=== PATIENT | female | born 1950 | race Caucasian/White ===

== ENCOUNTER 2016-09-02 10:18 | Outpatient (CLI) | payer OTHER ==
--- NOTE | 2016-09-03 13:01 | DIAGNOSTIC IMAGING REPORT ---
REFERRING PHYSICIAN/PROVIDER: Stew Bernal MD CONSULTING LOCKSTITCH FRONT MAKER: Micha Walker MD PROCEDURE: 2D echo, M-mode and complete color and flow Doppler interrogation TECHNICAL QUALITY: Good INDICATION: MURMER INTERPRETATIONS: CHAMBERS: LEFT ATRIUM: Normal left atrial size. LEFT VENTRICLE: Asymmetric septal hypertrophy with a maximum thickness of 1.3 cm. Normal left ventricular size and systolic function, EF 59%. No wall motion abnormalities. Normal diastolic function. No left ventricular outflow tract obstruction appreciated. RIGHT ATRIUM: Normal right atrial size. RIGHT VENTRICLE: Normal right ventricular size and systolic function. VALVES: All valves nonrheumatic unless otherwise indicated. AORTIC VALVE: Trileaflet aortic valve. No aortic stenosis. No aortic regurgitation. MITRAL VALVE: Trace mitral regurgitation. No mitral stenosis. TRICUSPID VALVE: Mild tricuspid regurgitation. RVSP 20 mmHg. PULMONIC VALVE: No pulmonic regurgitation. MISCELLANEOUS: No pericardial effusion. HEMODYNAMICS: Normal IVC size and >50% collapse with inspiration. CVP is 3 mmHg. IMPRESSION: 1. Normal left ventricular size and systolic function, EF 59%. No wall motion abnormalities. 2. Normal diastolic function. 3. No hemodynamically significant valvular abnormalities. 4. Normal right ventricular size and systolic function. 5. Estimated pulmonary artery systolic pressure is 20 mmHg.
--- NOTE | 2016-09-03 13:01 | DIAGNOSTIC IMAGING REPORT ---
REFERRING PHYSICIAN/PROVIDER: Stew Bernal MD CONSULTING TERRAZZO FINISHER HELPER: Micha Walker MD PROCEDURE: 2D echo, M-mode and complete color and flow Doppler interrogation TECHNICAL QUALITY: Good INDICATION: MURMER INTERPRETATIONS: CHAMBERS: LEFT ATRIUM: Normal left atrial size. LEFT VENTRICLE: Asymmetric septal hypertrophy with a maximum thickness of 1.3 cm. Normal left ventricular size and systolic function, EF 59%. No wall motion abnormalities. Normal diastolic function. No left ventricular outflow tract obstruction appreciated. RIGHT ATRIUM: Normal right atrial size. RIGHT VENTRICLE: Normal right ventricular size and systolic function. VALVES: All valves nonrheumatic unless otherwise indicated. AORTIC VALVE: Trileaflet aortic valve. No aortic stenosis. No aortic regurgitation. MITRAL VALVE: Trace mitral regurgitation. No mitral stenosis. TRICUSPID VALVE: Mild tricuspid regurgitation. RVSP 20 mmHg. PULMONIC VALVE: No pulmonic regurgitation. MISCELLANEOUS: No pericardial effusion. HEMODYNAMICS: Normal IVC size and >50% collapse with inspiration. CVP is 3 mmHg. IMPRESSION: 1. Normal left ventricular size and systolic function, EF 59%. No wall motion abnormalities. 2. Normal diastolic function. 3. No hemodynamically significant valvular abnormalities. 4. Normal right ventricular size and systolic function. 5. Estimated pulmonary artery systolic pressure is 20 mmHg.
== END 2016-09-02 23:00 ==
LOC: US SRH 10:18
DX: R01.1 Cardiac murmur, unspecified (principal)